=== PATIENT | female | born 1985 | race African-American/Black ===

== ENCOUNTER 2018-06-24 15:12 | Emergency (ER) | payer MEDICAID, OTHER ==
[2018-06-24 17:25] LABS: ABNORMAL IP MESSAGE 1; IMMATURE GRANS #M 0.01 10^3/ul; IMMATURE GRANS % (M) 0.2 %; MEAN CORPUSCULAR HGB CONC 25.8 g/dl (32.0-37.0); MEAN CORPUSCULAR VOLUME 61.9 fl (82.0-101.0); MEAN PLATELET VOLUME 8.9 fl (7.4-10.4); NUCLEATED RED BLOOD CELLS% 0.8 /100WBC (0.0-0.0); PLATELET COUNT 639 10^3/UL (140-415); RED CELL DISTRIBUTION WIDTH 22.9 % (11.5-14.5)
[2018-06-24 17:25] LABS: WHITE BLOOD COUNT 6.2 10^3/ul (4.8-10.8)
[2018-06-24 17:34] LABS: HEMOGLOBIN 6.7 g/dl (12.0-16.0); POSITIVE DIFF @See below
[2018-06-24 17:35] LABS: ADD MAN DIFF? YES; PATH REVIEW? YES
[2018-06-24 17:42] LABS: ALANINE AMINOTRANSFERASE 9 IU/L (13-69); ALBUMIN 3.9 g/dl (3.3-4.9); ALBUMIN/GLOBULIN RATIO 1.14; ALKALINE PHOSPHATASE 61 IU/L (42-121); ANION GAP 14 (8-16); ASPARTATE AMINO TRANSFERASE 21 IU/L (15-46); BLOOD UREA NITROGEN 11 mg/dl (7-20); CALCIUM 8.4 mg/dl (8.4-10.2); CARBON DIOXIDE 24 mmol/L (21-31); CHLORIDE 108 mmol/L (97-110); CREATININE 0.58 mg/dl (0.44-1.00); GLUCOSE 79 mg/dl (70-220); SODIUM 142 mmol/L (135-144); TOTAL PROTEIN 7.3 g/dl (6.1-8.1)
[2018-06-24 17:44] LABS: INR 1.08; PARTIAL THROMBOPLASTIN TIME 21.7 Sec (25.0-35.0); PROTIME 14.1 Sec (11.9-14.9); PT RATIO 1.1
[2018-06-24 18:24] LABS: ANISOCYTOSIS 3+ (0-0); BAND NEUTROPHILS #M 0.1 10^3/ul (0.0-0.6); BAND NEUTROPHILS % (M) 2 % (0-4); BASOPHILS % (M) 1 % (0-2); EOSINOPHILS % (M) 1 % (0-7); ERYTHROBLAST% (NRBC) (M) 2 % (0-0); GIANT THROMBO% (M) 6 % (0-0); HYPOCHROMASIA 1+ (0-0); LYMPHOCYTES #M 2.4 10^3/ul (0.8-2.9); LYMPHOCYTES % (M) 40 % (15-51); MICROCYTOSIS 3+ (0-0); MONOCYTE #M 0.4 10^3/ul (0.3-0.9); MONOCYTES % (M) 7 % (0-11); PLATELET ESTIMATE INCREASED; POIKILOCYTOSIS 2+ (0-0); POLYCHROMASIA 1+ (0-0); PROMYELOCYTES % (M) 1 % (0-0); SEGMENTED NEUTROPHILS (M) % 48 % (39-77); SMUDGE%M 37 % (0-0)
[2018-06-24 18:50] LABS: IMMEDIATE SPIN CROSSMATCH 1 2
== END 2018-06-25 01:15 | disposition home or self-care (01) ==
LOC: E/R 06-25 01:15
DX: D64.9 Anemia, unspecified (principal); N92.0 Excessive and frequent menstruation with regular cycle; D25.9 Leiomyoma of uterus, unspecified; R10.2 Pelvic and perineal pain
CPT/HCPCS: 36430; 76830; 76856; 80053; 85025; 85610; 85730; 86850; 86900; 86901; 86920; 93005; 99285-25